=== PATIENT | female | born 1975 | race African-American/Black ===

== ENCOUNTER 2020-02-19 09:31 | Outpatient (CLI) | payer OTHER ==
[2020-02-20 12:10] LABS: SARS-CoV-2 MS2 Positive; SARS-CoV-2 N Gene Negative; SARS-CoV-2 S Gene Negative; SARS-CoV-2 orf1ab Negative
== END 2020-02-19 09:32 | disposition home or self-care (01) ==
LOC: LABBT 09:31
PROVIDERS: ATTEND Family Medicine
DX: Z01.812 Encounter for preprocedural laboratory examination (principal); Z11.59 Encounter for screening for other viral diseases
CPT/HCPCS: 87635; U0003

== ENCOUNTER → 2020-02-23 | Day surgery (SDC) | payer OTHER ==
[2020-02-20 10:55] VITALS: BMI 48.4
== END ==
LOC: SDC/OP 09:49
PROVIDERS: ATTEND Family Medicine
DX: M51.17 Intervertebral disc disorders with radiculopathy, lumbosacral region (principal); Z53.9 Procedure and treatment not carried out, unspecified reason; Z79.899 Other long term (current) drug therapy; Z88.8 Allergy status to other drugs, medicaments and biological substances
CPT/HCPCS: 36416

== ENCOUNTER 2021-06-09 18:10 | Emergency (ER) | payer OTHER ==
[2021-06-09] MEDS ORDERED: Ketorolac Tromethamine 30 MG/ML VIAL ONE (19:23)
[2021-06-09 20:05] LABS: Bacteria/HPF None Seen HPF (None Seen); Bilirubin Negative (Negative); Blood, Urine Negative (Negative); Clarity Clear (Clear); Glucose, Urine (Dipstick) Normal (Negative); Ketone, Urine Negative (Negative); Leukocyte Negative Leu/uL (Negative); Nitrite Negative (Negative); Pregnancy Test - Urine (BHCG) Negative (Negative); Pregu Control Background? CLEAR/WHITE (CLR/WHITE); Pregu Control Bar Appear? YES (CONTROL BAR); Protein, Urine (Dipstick) 100 mg/dL (Neg-Trace); RBC/HPF 0-3 HPF (0-3); Specific Gravity 1.014 (1.002-1.036); Specific Gravity, Urine 1.014 (1.002-1.036); Squamous Epithelial 0-3 HPF (0-3); Urobilinogen Normal mg/dL (Less than 2); WBC/HPF 0-3 HPF (0-3); pH, Urine 5.5 (5.0-9.0)
[2021-06-09 20:05] LABS: #Basophils 0.1 thou/uL (0.0-0.2); #Eosinphils 0.9 thou/uL (0.0-0.7); #Lymphocytes 5.4 thou/uL (1.20-3.40); #Monocytes 0.6 thou/uL (0.11-0.59); #Neutrophils 6.2 thou/uL (1.40-6.50); %Basophils 0.6 % (0.0-1.0); %Eosinophils 6.9 % (0.0-10.0); %Lymphocytes 40.6 % (21.0-51.0); %Monocytes 4.8 % (0.0-10.0); %Neutrophils 47.2 % (42.0-75.0); Hemoglobin 12.3 g/dL (12.0-16.0); MDiff Complete? YES; Mean Corpuscular HGB CONC 34.1 g/dL (32.0-36.0); Mean Corpuscular Volume 73.2 fL (78.0-98.0); Mean Platelet Volume 7.9 fL (7.4-10.4); Microcytosis SLIGHT = 6-15 cells (100X) (0-5/hpf); Platelet Count 511 thou/uL (130-400); RBC Distribution Width 18.7 % (11.5-14.5); Red Blood Cell (RBC) Count 4.93 mill/uL (4.20-5.40); Target Cells SLIGHT = 2-5 cells (100X) (0-1/hpf); White Blood Cell (WBC) Count 13.2 thou/uL (4.8-10.8)
[2021-06-09] MEDS ORDERED: Lorazepam 2 MG/ML VIAL ONE (20:28)
[2021-06-09 20:51] LABS: Albumin 3.8 g/dL (3.5-5.0)
[2021-06-09 20:52] LABS: Chloride 106 mmol/L (98-107); Potassium 4.3 mmol/L (3.5-5.1); Sodium 140 mmol/L (136-145)
[2021-06-09 20:53] LABS: Glucose 82 mg/dL (70-105)
[2021-06-09 20:54] LABS: Globulin 3.8 g/dL (2.4-3.5); Protein, Total 7.6 g/dL (6.0-8.3)
[2021-06-09 20:55] LABS: Anion Gap 14 mmol/L (10-20); Bilirubin, Total 0.2 mg/dL (0.2-1.2); Carbon Dioxide 24 mmol/L (22-29)
[2021-06-09 20:56] LABS: Alkaline Phosphatase 124 U/L (40-110)
[2021-06-09 20:57] LABS: Calc. Creatinine Clearance 0 mL/min (70-130)
[2021-06-09 20:58] LABS: BUN (Urea Nitrogen) 13 mg/dL (7.0-18.7)
[2021-06-09 20:59] LABS: ALT (SGPT) 12 U/L (8-55); AST (SGOT) 16 U/L (5-34)
== END 2021-06-09 20:30 | disposition home or self-care (01) ==
LOC: ERS 18:10
DX: R10.31 Right lower quadrant pain (principal); E11.9 Type 2 diabetes mellitus without complications; I10 Essential (primary) hypertension; Z79.899 Other long term (current) drug therapy
CPT/HCPCS: 36415; 74177; 80053; 81003; 81015; 81025; 85025; 96374; 96375; J1885; J2060

== ENCOUNTER 2021-06-10 13:31 | Outpatient (CLI) | payer OTHER | END 2021-06-10 13:32 | disposition home or self-care (01) | LOC: CTENTCT 13:31 | PROVIDERS: ATTEND Student in an Organized Health Care Education/Training Program | DX: J32.9 Chronic sinusitis, unspecified (principal) | CPT/HCPCS: 70486 ==

== ENCOUNTER 2021-06-27 07:18 | Outpatient (CLI) | payer OTHER ==
[2021-06-27 10:41] LABS: Anion Gap 14 mmol/L (10-20); BUN (Urea Nitrogen) 21 mg/dL (7.0-18.7); Calc. Creatinine Clearance 0 mL/min (70-130); Calcium 8.5 mg/dL (7.8-10.44); Carbon Dioxide 23 mmol/L (22-29); Chloride 105 mmol/L (98-107); Glucose 92 mg/dL (70-105); Potassium 4.1 mmol/L (3.5-5.1); Sodium 138 mmol/L (136-145)
[2021-06-27 17:47] LABS: SARS-CoV-2 PCR by NAA Not Detected (NotDetected)
== END 2021-06-27 07:19 | disposition home or self-care (01) ==
LOC: LABBT 07:18
PROVIDERS: ATTEND Student in an Organized Health Care Education/Training Program
DX: Z01.812 Encounter for preprocedural laboratory examination (principal); J32.9 Chronic sinusitis, unspecified; R09.82 Postnasal drip; J33.9 Nasal polyp, unspecified; F19.11 Other psychoactive substance abuse, in remission; Q21.9 Congenital malformation of cardiac septum, unspecified; Z20.822 Contact with and (suspected) exposure to COVID-19
CPT/HCPCS: 80048; 85014; 93005; 93010; U0003; U0005

== ENCOUNTER 2021-06-28 10:20 | Day surgery (SDC) | payer OTHER ==
[2021-06-27 16:04] VITALS: BMI 42.4
[2021-06-28] MEDS ORDERED: AFRIN NASAL MIST 15 ML BOT ONE ×2 (10:52→12:45)
[2021-06-28] MEDS ORDERED: Lidocaine 1% w/Epinephrine 1:100K 20 ML VIAL ONE (12:45)
[2021-06-28] MEDS ORDERED: Midazolam HCl 2 mg/2 ml Vial ONE (13:12)
[2021-06-28] MEDS ORDERED: Propofol 500 MG/50 ML VIAL ONE ×2 (13:12→14:58)
[2021-06-28] MEDS ORDERED: Acetaminophen 500 MG TAB ONE (13:12)
[2021-06-28] MEDS ORDERED: Fentanyl 250 MCG/5 ML VIAL ONE (13:12)
[2021-06-28] MEDS ORDERED: Rocuronium Bromide 10 MG/ML (10ML VIAL) ONE (13:31)
[2021-06-28] MEDS ORDERED: PROPOFOL 200 MG/20 ML VIAL ONE (13:31)
[2021-06-28] MEDS ORDERED: Ondansetron PF 4 MG/2 ML Vial ONE (13:31)
[2021-06-28] MEDS ORDERED: PHENYLEPHRINE-NS 100 MCG/ML 10 ML SYRINGE ONE (13:31)
[2021-06-28] MEDS ORDERED: ePHEDrine 50 MG/ML VIAL ONE (13:31)
[2021-06-28] MEDS ORDERED: Lidocaine 1% PF 5 ML VIAL ONE (13:31)
[2021-06-28] MEDS ORDERED: Dexamethasone 20 MG/5 ML VIAL ONE (13:31)
[2021-06-28] MEDS ORDERED: Labetalol HCl 100 MG/20 ML VIAL ONE (13:31)
[2021-06-28] MEDS ORDERED: Fentanyl 100 MCG/2 ML VIAL ONE ×2 (16:07→16:32)
== END 2021-06-28 17:30 | disposition home or self-care (01) ==
LOC: SDC 10:20
PROVIDERS: ATTEND Student in an Organized Health Care Education/Training Program
PROC: 09TL0ZZ Resection of Nasal Turbinate, Open Approach (ICD-10-PCS; principal; 2021-06-28)
PROC: 09QK0ZZ Repair Nasal Mucosa and Soft Tissue, Open Approach (ICD-10-PCS; principal; 2021-06-28)
PROC: 09SM0ZZ Reposition Nasal Septum, Open Approach (ICD-10-PCS; principal; 2021-06-28)
DX: J34.2 Deviated nasal septum (principal); J34.3 Hypertrophy of nasal turbinates; J34.89 Other specified disorders of nose and nasal sinuses; J32.9 Chronic sinusitis, unspecified; J33.9 Nasal polyp, unspecified; F19.11 Other psychoactive substance abuse, in remission; E11.9 Type 2 diabetes mellitus without complications; Z79.899 Other long term (current) drug therapy; Z88.8 Allergy status to other drugs, medicaments and biological substances
CPT/HCPCS: 36416; J1100; J2250; J2405; J2704; J3010; J3490; Q4166

== ENCOUNTER 2022-01-15 20:44 | Emergency (ER) | payer OTHER | END 2022-01-15 21:58 | disposition home or self-care (01) | LOC: ERS 20:44 | DX: S63.91XA Sprain of unspecified part of right wrist and hand, initial encounter (principal); E11.9 Type 2 diabetes mellitus without complications; I10 Essential (primary) hypertension; Z79.899 Other long term (current) drug therapy; W19.XXXA Unspecified fall, initial encounter ==

== ENCOUNTER 2022-07-20 23:23 | Inpatient (IN) | payer OTHER ==
[2022-07-21 00:03] LABS: Hemoglobin 13.6 g/dL (12.0-16.0); Mean Corpuscular Hemoglobin 24.3 pg (27.0-31.0); Mean Corpuscular Volume 71.5 fl (78.0-98.0); Mean Platelet Volume 9.9 fL (7.4-10.4); Platelet Count 418 10x3/uL (130-400); RBC Distribution Width 20.9 % (11.5-14.5); Red Blood Cell (RBC) Count 5.57 mill/uL (4.20-5.40); White Blood Cell (WBC) Count 10.1 10x3/uL (4.8-10.8)
[2022-07-21 00:17] LABS: ALT (SGPT) 1162 U/L (8-55); AST (SGOT) 2848 U/L (5-34); Albumin 2.9 g/dL (3.5-5.0); Alkaline Phosphatase 738 U/L (40-110); Anion Gap 14 mmol/L (10-20); BUN (Urea Nitrogen) 7 mg/dL (7.0-18.7); Bilirubin, Total 12.6 mg/dL (0.2-1.2); Calc. Creatinine Clearance 0 mL/min (70-130); Calcium 8.1 mg/dL (7.8-10.44); Carbon Dioxide 23 mmol/L (22-29); Chloride 98 mmol/L (98-107); Estimated GFR 69; Globulin 4.4 g/dL (2.4-3.5); Glucose 125 mg/dL (70-105); Potassium 3.7 mmol/L (3.5-5.1); Protein, Total 7.3 g/dL (6.0-8.3); Sodium 131 mmol/L (136-145)
[2022-07-21 00:33] LABS: #Basophils 0.1 thou/uL (0.0-0.2); #Eosinphils 0.2 thou/uL (0.0-0.7); #Lymphocytes 3.6 thou/uL (1.20-3.40); #Monocytes 1.1 thou/uL (0.11-0.59); #Neutrophils 5.1 thou/uL (1.40-6.50); %Basophils 1.4 % (0.0-1.0); %Eosinophils 1.6 % (0.0-10.0); %Monocytes 10.8 % (0.0-10.0); %Neutrophils 50.3 % (42.0-75.0); Anisocytosis MODERATE=16-30 cells (100X) (0-5/hpf); MDiff Complete? YES; Microcytosis SLIGHT = 6-15 cells (100X) (0-5/hpf); Ovalocytes SLIGHT = 2-5 cells (100X) (0-1/hpf); Reflex for Review?? YES; Target Cells MARKED = >16 cells (100X) (0-1/hpf)
[2022-07-21 00:36] LABS: Platelet Morphology Comment Appears Increased
[2022-07-21 00:38] LABS: Bilirubin 4+ (Negative); Blood, Urine Negative (Negative); Clarity Turbid (Clear); Glucose, Urine (Dipstick) Normal (Negative); Ketone, Urine Negative (Negative); Leukocyte Negative Leu/uL (Negative); Nitrite Negative (Negative); Protein, Urine (Dipstick) 100 mg/dL (Neg-Trace); RBC/HPF 0-3 HPF (0-3); Specific Gravity, Urine 1.015 (1.002-1.036); pH, Urine 5.5 (5.0-9.0)
[2022-07-21 00:45] LABS: Acetaminophen Less than 10.0 mcg/mL (10.0-30.0); Alcohol 15 mg/dL (Less than 10); Salicylate Less than 8.0 mg/dL (15.0-30.0)
[2022-07-21 00:54] LABS: Bacteria/HPF 2+ HPF (None Seen)
[2022-07-21] MEDS ORDERED: Piperacillin/Tazobactam 3.375 GM VIAL ONE (01:49)
[2022-07-21] MEDS ORDERED: Ondansetron PF 4 MG/2 ML Vial IVP PRN (03:30)
[2022-07-21] MEDS ORDERED: Ondansetron ODT 4 MG TAB SL PRN (03:30)
[2022-07-21 04:15] VITALS: BMI 33.7
[2022-07-21] MEDS ORDERED: Acetaminophen 650 MG Suppository PR PRN (04:22)
[2022-07-21] MEDS ORDERED: Sodium Chloride 0.9% 1,000 ML IV SCH (04:30)
[2022-07-21] MEDS ORDERED: Ketorolac Tromethamine 30 MG/ML VIAL IVP PRN (04:32)
[2022-07-21] MEDS ORDERED: HumaLOG 300 UNITS/3 ML VIAL SC PRN ×2 (04:41)
[2022-07-21] MEDS ORDERED: Dextrose 50% Abboject 50 ML SYRINGE SLOW IVP PRN (04:41)
[2022-07-21] MEDS ORDERED: Dextrose 5% in Water 1,000 ML IV PRN (04:41)
[2022-07-21] MEDS: Sodium Chloride 0.9% 1,000 ML IV SCH ×2 (04:44→13:33)
[2022-07-21 05:17] LABS: SARS-CoV-2 NAA Rapid Test Not Detected (NotDetected)
[2022-07-21] MEDS ORDERED: Piperacillin/Tazobactam 3.375 GM in Sodium Chloride 0.9% 100 ML IVPB SCH (06:00)
[2022-07-21] MEDS: Piperacillin/Tazobactam 3.375 GM in Sodium Chloride 0.9% 100 ML IVPB SCH ×2 (06:13→14:20)
[2022-07-21 06:18] LABS: #Basophils 0.1 thou/uL (0.0-0.2); #Eosinphils 0.3 thou/uL (0.0-0.7); #Lymphocytes 3.9 thou/uL (1.20-3.40); #Monocytes 1.3 thou/uL (0.11-0.59); #Neutrophils 5.2 thou/uL (1.40-6.50); %Basophils 1.4 % (0.0-1.0); %Eosinophils 2.8 % (0.0-10.0); %Lymphocytes 36.2 % (21.0-51.0); %Monocytes 11.7 % (0.0-10.0); Mean Corpuscular HGB CONC 33.5 g/dL (32.0-36.0); Mean Corpuscular Hemoglobin 24.2 pg (27.0-31.0); Mean Corpuscular Volume 72.1 fl (78.0-98.0); Mean Platelet Volume 10.1 fL (7.4-10.4); Platelet Count 370 10x3/uL (130-400); RBC Distribution Width 20.6 % (11.5-14.5); Red Blood Cell (RBC) Count 4.98 mill/uL (4.20-5.40); White Blood Cell (WBC) Count 10.7 10x3/uL (4.8-10.8)
[2022-07-21 06:40] LABS: ALT (SGPT) 983 U/L (8-55); AST (SGOT) 2482 U/L (5-34); Albumin 2.6 g/dL (3.5-5.0); Alkaline Phosphatase 637 U/L (40-110); Anion Gap 14 mmol/L (10-20); BUN (Urea Nitrogen) 7 mg/dL (7.0-18.7); Bilirubin, Total 12.3 mg/dL (0.2-1.2); Calc. Creatinine Clearance 140 mL/min (70-130); Calcium 7.9 mg/dL (7.8-10.44); Carbon Dioxide 20 mmol/L (22-29); Chloride 103 mmol/L (98-107); Estimated GFR 93; Globulin 3.7 g/dL (2.4-3.5); Glucose 97 mg/dL (70-105); Protein, Total 6.3 g/dL (6.0-8.3); Sodium 133 mmol/L (136-145)
[2022-07-21 07:31] LABS: Amphetamine Not Detected (NotDetected); Barbiturates Screen Not Detected (NotDetected); Benzodiazepine Screen Not Detected (NotDetected); Cocaine Metabolite Screen Detected (NotDetected); Methadone Not Detected (NotDetected); Methamphetamine Not Detected (NotDetected); Opiate Screen Not Detected (NotDetected); Oxycodone Screen Not Detected (NotDetected); Phencyclidine (PCP) Detected (NotDetected); THC/Cannabinoid Screen Not Detected (NotDetected); Tricyclic Screen Not Detected (NotDetected)
[2022-07-21] MEDS ORDERED: Iopamidol-370 76% 500 ML 1 ML ONE (10:34)
[2022-07-21 10:42] LABS: Prothrombin Time 13.1 sec (12.0-14.7)
[2022-07-21] MEDS: Multivitamins, Adult 10 ML, Folic Acid 1 MG, Thiamine HCl 100 MG in Dextrose 5 %-0.45 %... IV SCH (11:15)
[2022-07-21 18:50] LABS: Hep C IgG Ab Non-Reactive (NonReactive); Hep C Index 0.11 S/CO (0-0.79)
[2022-07-22 02:22] LABS: Hep A IgM AB Non-Reactive (NonReactive); Hep A IgM S/CO 0.23 S/CO (0-0.79)
[2022-07-22 06:23] LABS: Iron 63 ug/dL (50-170); Iron Binding Capacity, Total 424 mcg/dL (265-497)
[2022-07-22 06:27] LABS: ALT (SGPT) 1104 U/L (8-55); AST (SGOT) 3165 U/L (5-34); Albumin 2.6 g/dL (3.5-5.0); Alkaline Phosphatase 613 U/L (40-110); Anion Gap 13 mmol/L (10-20); BUN (Urea Nitrogen) 9 mg/dL (7.0-18.7); Bilirubin, Direct 9.5 mg/dL (0.1-0.3); Bilirubin, Total 14.6 mg/dL (0.2-1.2); Calc. Creatinine Clearance 142 mL/min (70-130); Calcium 8.1 mg/dL (7.8-10.44); Carbon Dioxide 19 mmol/L (22-29); Chloride 107 mmol/L (98-107); Estimated GFR 94; Globulin 4.2 g/dL (2.4-3.5); Glucose 84 mg/dL (70-105); Potassium 4.8 mmol/L (3.5-5.1); Protein, Total 6.8 g/dL (6.0-8.3); Sodium 134 mmol/L (136-145)
[2022-07-22 06:46] LABS: INR-International Normal Ratio 0.9; Prothrombin Time 12.4 sec (12.0-14.7)
[2022-07-22 13:09] LABS: HBSAg Index 1433.85 S/CO (0-0.99)
[2022-07-22 13:10] LABS: Hepatitis B Core IgM Abs Reactive (NonReactive)
[2022-07-22 13:11] LABS: HBCM Index 38.09 S/CO (0-0.79)
[2022-07-22 13:12] LABS: Hep B Surf Ag Reflx Confirmation S/CO (NonReactive)
[2022-07-22] MEDS: Acetaminophen 325 MG TAB PO PRN ×2 (14:35→20:27)
[2022-07-22] MEDS: Multivitamins, Adult 10 ML, Folic Acid 1 MG, Thiamine HCl 100 MG in Dextrose 5 %-0.45 %... IV SCH (16:05)
[2022-07-23] MEDS: Acetaminophen 325 MG TAB PO PRN ×3 (06:25→19:47)
[2022-07-23 07:36] LABS: Prothrombin Time 13.4 sec (12.0-14.7)
[2022-07-23 07:47] LABS: ALT (SGPT) 1073 U/L (8-55); AST (SGOT) 3222 U/L (5-34); Albumin 2.4 g/dL (3.5-5.0); Alkaline Phosphatase 513 U/L (40-110); Anion Gap 12 mmol/L (10-20); BUN (Urea Nitrogen) 8 mg/dL (7.0-18.7); Bilirubin, Total 14.6 mg/dL (0.2-1.2); Calc. Creatinine Clearance 150 mL/min (70-130); Carbon Dioxide 20 mmol/L (22-29); Chloride 106 mmol/L (98-107); Estimated GFR 100; Globulin 3.7 g/dL (2.4-3.5); Glucose 80 mg/dL (70-105); Potassium 4.4 mmol/L (3.5-5.1); Protein, Total 6.1 g/dL (6.0-8.3); Sodium 134 mmol/L (136-145)
[2022-07-23] MEDS: Multivitamins, Adult 10 ML, Folic Acid 1 MG, Thiamine HCl 100 MG in Dextrose 5 %-0.45 %... IV SCH (13:14)
[2022-07-23 14:59] LABS: ANA Symphony (Qualitative) Negative (Negative); ANA Symphony (Quantitative) 0.4 Ratio (< 0.7 Negative); EliA Vaculitis New Method **** NEW METHOD ****; Mitochondrial Ab 1.3 U/mL (<4 Negative); dsDNA IgG Antibody 1.5 IU/mL (<10 Negative)
[2022-07-24 06:34] LABS: Prothrombin Time 13.1 sec (12.0-14.7)
[2022-07-24 06:52] LABS: ALT (SGPT) 1126 U/L (8-55); AST (SGOT) 3184 U/L (5-34); Albumin 2.5 g/dL (3.5-5.0); Alkaline Phosphatase 486 U/L (40-110); Anion Gap 10 mmol/L (10-20); BUN (Urea Nitrogen) 7 mg/dL (7.0-18.7); Bilirubin, Total 16.6 mg/dL (0.2-1.2); Calc. Creatinine Clearance 135 mL/min (70-130); Calcium 8.4 mg/dL (7.8-10.44); Carbon Dioxide 22 mmol/L (22-29); Chloride 105 mmol/L (98-107); Estimated GFR 89; Globulin 3.7 g/dL (2.4-3.5); Glucose 97 mg/dL (70-105); Protein, Total 6.2 g/dL (6.0-8.3); Sodium 133 mmol/L (136-145)
[2022-07-24] MEDS: Acetaminophen 325 MG TAB PO PRN (09:51)
[2022-07-24] MEDS: Multivitamins, Adult 10 ML, Folic Acid 1 MG, Thiamine HCl 100 MG in Dextrose 5 %-0.45 %... IV SCH (11:38)
[2022-07-25 07:38] LABS: Prothrombin Time 13.7 sec (12.0-14.7)
[2022-07-25 07:48] LABS: ALT (SGPT) 953 U/L (8-55); AST (SGOT) 2613 U/L (5-34); Albumin 2.3 g/dL (3.5-5.0); Alkaline Phosphatase 422 U/L (40-110); Anion Gap 11 mmol/L (10-20); BUN (Urea Nitrogen) 6 mg/dL (7.0-18.7); Bilirubin, Total 16.3 mg/dL (0.2-1.2); Calc. Creatinine Clearance 138 mL/min (70-130); Calcium 8.3 mg/dL (7.8-10.44); Carbon Dioxide 22 mmol/L (22-29); Chloride 105 mmol/L (98-107); Estimated GFR 91; Globulin 3.5 g/dL (2.4-3.5); Glucose 71 mg/dL (70-105); Potassium 4.1 mmol/L (3.5-5.1); Protein, Total 5.8 g/dL (6.0-8.3); Sodium 134 mmol/L (136-145)
[2022-07-25 08:05] LABS: HIV (1/2) Antibody/Antigen Non-Reactive (NonReactive); HIV 1/2 INDEX 0.21 S/CO (<1.00)
[2022-07-25] MEDS: Multivitamins, Adult 10 ML, Folic Acid 1 MG, Thiamine HCl 100 MG in Dextrose 5 %-0.45 %... IV SCH (10:51)
[2022-07-26 06:17] LABS: Prothrombin Time 13.5 sec (12.0-14.7)
[2022-07-26 06:24] LABS: ALT (SGPT) 749 U/L (8-55); AST (SGOT) 1856 U/L (5-34); Albumin 2.3 g/dL (3.5-5.0); Alkaline Phosphatase 395 U/L (40-110); Anion Gap 12 mmol/L (10-20); BUN (Urea Nitrogen) 6 mg/dL (7.0-18.7); Bilirubin, Total 17.3 mg/dL (0.2-1.2); Calc. Creatinine Clearance 137 mL/min (70-130); Calcium 8.2 mg/dL (7.8-10.44); Carbon Dioxide 23 mmol/L (22-29); Chloride 105 mmol/L (98-107); Estimated GFR 90; Globulin 3.6 g/dL (2.4-3.5); Glucose 81 mg/dL (70-105); Potassium 4.1 mmol/L (3.5-5.1); Protein, Total 5.9 g/dL (6.0-8.3); Sodium 136 mmol/L (136-145)
[2022-07-26] MEDS: Multivitamins, Adult 10 ML, Folic Acid 1 MG, Thiamine HCl 100 MG in Dextrose 5 %-0.45 %... IV SCH (10:38)
[2022-07-26 13:16] VITALS: BP 140/80; TEMP 98
== END 2022-07-26 14:20 | disposition home or self-care (01) | DRG 445 ==
LOC: ERS 23:23 → SURG A 07-21 03:07
PROVIDERS: ADMIT Student in an Organized Health Care Education/Training Program; ATTEND Internal Medicine
DX: K81.0 Acute cholecystitis (principal); B16.9 Acute hepatitis B without delta-agent and without hepatic coma; E87.1 Hypo-osmolality and hyponatremia; I10 Essential (primary) hypertension; E11.9 Type 2 diabetes mellitus without complications; Z79.85 Long-term (current) use of injectable non-insulin antidiabetic drugs
CPT/HCPCS: 36415; 36416; 74177; 76705; 80053; 80074; 80076; 80306; 80307; 81003; 81015; 82103; 82140; 82390; 82550; 82728; 83516; 83540; 83550; 83605; 83690; 85025; 85060; 85610; 86015; 86038; 86225; 86692; 87086; 87340; 87389; 96374; J1885; J2543; J3411; J3490; J7042; J7050; Q9967; U0002